=== PATIENT | female | born 1985 | race Caucasian/White ===

== ENCOUNTER 2024-12-07 08:30 | Emergency (ER) | payer MEDICARE, MEDICAID, SELFPAY ==
[2024-12-07 08:37] VITALS: BP 149/111
--- NOTE | 2024-12-07 09:33 | ED.GENMED ---
History of Present Illness
General
Chief Complaint: Abdominal Pain
Source: patient and family
Time Seen by Provider: 12/07/24 09:03
History of Present Illness
History of Present Illness:
This patient is a 39-year-old female who is 7 months status post , who states that she is 'very active', and has been doing very well postsurgery. However, in the last 2 days she notes that during/after having a bowel movement
she has a 'weird feeling' and notes a 'ball' in the umbilical area. She states that she lays down supine and either herself or her boyfriend will gently massage the area to reduce the hernia. This is not associated with nausea, vomiting, chest
pain, shortness of breath, back pain, fever, chills, anorexia, or other complaints. She states that she sometimes strains recently to have bowel movements but she does not note associated melena or hematochezia. She denies urinary symptoms.
Past History
Past History
ED Past Medical History: GERD, Hypothyroidism, Psychiatric and Other (Autism)
ED Past Surgical History: Gynecological
Social History
Tobacco: Smoker
Alcohol: None
Drug: None
Personal:
Living: with family
Employment: Not employed
Family History
Family History: Negative CAD
Phy Exam
Physical Exam
Physical Exam:
GENERAL: Alert , in no apparent distress
EYE: pupils equal and reactive
NECK: Supple, no significant adenopathy.
ENT: o/p clr, mmm.
CARDIAC: Regular rate and rhythm .
LUNGS: Clear breath sounds bilaterally, no acute respiratory distress, no wheezes/rales/rhonchi
ABDOMEN: Soft, without focal tenderness, no r/g, no cvat� No hernia noted supine however with half sit up/straining small palpable reducible ventral hernia noted
NEUROLOGICAL: Alert and oriented, no focal neuro deficits
SKIN: Warm and dry, skin intact.
MUSCULOSKELETAL: No edema, well perfused.
PSYCH: Normal and appropriate interaction.
Course
Vital Signs
Initial and Last Documented VS:
Initial Vital Signs
Temp Pulse BP Pulse Ox
98.4 F 83 149/111 99
12/07/24 08:37 12/07/24 08:37 12/07/24 08:37 12/07/24 08:37
Last Documented Vital Signs
Temp Pulse BP Pulse Ox
98.4 F 83 149/111 99
12/07/24 08:37 12/07/24 08:37 12/07/24 08:37 12/07/24 08:37
*Pulse Oximetry
SaO2: 99
Oxygen Mode of Delivery: Room air
Patient hypoxic: no
*Critical Care Note
Total Time (30-74mins, 75-104mins- exclusive of procedures): Not Applicable
Update Note
Update Note:
Patient presents to the Emergency Department with abdominal discomfort/mass
Number and Complexity of Problems Addressed at the Encounter
� Chronic conditions affecting care:
� Acute Exacerbation and/or Progression of Chronic Illness:
� Differential Diagnosis includes: But not limited to reducible hernia, incarcerated hernia, strangulated hernia, bowel obstruction, gastroenteritis, etc. etc. etc.
Amount and/or Complexity of Data to be Reviewed and Analyzed
� I performed an independent evaluation of and my interpretation is:
EKG:
CT:
Xrays:
Laboratory Studies:
Other:
� Review of other/old records reveals:
� Clinical information was obtained by an independent historian: Mother who is a nurse and is bedside
� Prescriptions/Medications Considered but not given:
� Further testing considered but not performed:
Risk of Complications and/or Morbidity or Mortality of Patient Management
� Social determinants of health affecting care:
� Discussion with other providers (PCP, Hospitalists, Consultants, etc):
� Escalation of care including admission/observation vs risk of discharge considered: Patient has a completely normal physical exam here, extremely well-appearing, no complaints. She does a lot of heavy lifting given that she is
a mother of 4 young children. Her physical and history are very consistent with a reducible ventral hernia. No signs to suggest incarceration, strangulation, obstruction, or other complications. Long discussion with patient and mother regarding
methods of potential prevention of hernia causing incarceration/strangulation, and importance of surgical follow-up, and reasons to return to the ER. She is visiting from [place], and plans to follow-up there however in the interim expresses
understanding that we are eager to care for her if this was to develop.
ED Attending Note
-
Portions of this chart may have been created with voice recognition software.� Occasional wrong word or��sound alike� substitutions may have occurred due to the inherent limitations of voice recognition software.
Discharge Plan
Departure
Patient Disposition: Home (Routine Discharge)
Date of Disposition: 12/07/24
Time of Disposition: 09:38
Patient with high blood pressure during this ER visit?: Yes
Condition: Good
Discharge Problem:
Hernia
Instructions: Abdominal Hernia, BLOOD PRESSURE
Prescriptions:
No Action
albuterol sulfate 1 PUFF HFA aerosol inhaler
1 puff inhalation QIDPRN PRN (Reason: QUICK RELIEF OF WHEEZING ONLY) Qty: 1 0RF
omeprazole 20 MG capsule,delayed release(DR/EC)
20 mg PO DAILY
Activity Restrictions/Additional Instructions:
IF YOU DEVELOP FEVER, CHILLS, NAUSEA, VOMITING, ABDOMINAL PAIN, ABDOMINAL BULGING, OR OTHER WORRISOME SIGNS, PLEASE RETURN TO THE ER IMMEDIATELY!
Interventions
Interventions:
*Risk Screen - Suicide Last Done: 12/07/24 08:43
*Neglect/Abuse Screening Last Done: 12/07/24 08:43
Discharge Date and Time
Print Language: CZECH
[2024-12-07 09:52] VITALS: BP 143/99
== END 2024-12-07 10:07 | disposition home or self-care (01) ==
LOC: EMR 08:30
PROVIDERS: EMERGENCY PHYSICIAN Emergency Medicine
DX: K43.9 Ventral hernia without obstruction or gangrene (principal); E03.9 Hypothyroidism, unspecified; F17.200 Nicotine dependence, unspecified, uncomplicated; F84.0 Autistic disorder
CPT/HCPCS: 99282